=== PATIENT | male | born 1965 | race Two or more races ===

== ENCOUNTER 2020-01-23 11:49 | Inpatient (IN) | payer OTHER ==
[~2020-01-23] VITALS: Ht 182.9 cm; Wt 86.4 kg
[2020-01-23 14:24] LABS: Basophils # (auto) 0 10 ^3/uL (0-0.2); Basophils % (auto) 0.3 % (0.0-2.0); Eosinophils # (auto) 0 10 ^3/uL (0-0.8); Eosinophils % (auto) 0.4 % (0.0-7.0); Hematocrit 43.8 % (41.0-53.0); Hemoglobin 14.7 g/dL (13.5-17.5); Lymphocytes # (auto) 1.7 10 ^3/uL (0.4-5.4); Lymphocytes % (auto) 21.7 % (10.0-50.0); Mean Corpuscular Hemoglobin 30.2 pg (28.0-32.0); Mean Corpuscular Hgb Conc. 33.7 g/dL (32.0-36.0); Mean Corpuscular Volume 89.8 fL (80.0-100.0); Monocytes # (auto) 0.6 10 ^3/uL (0-1.3); Monocytes % (auto) 8.4 % (0.0-12.0); Neutrophils # (auto) 5.3 10 ^3/uL (1.6-8.6); Neutrophils % (auto) 69.2 % (37.0-80.0); Nucleated Red Blood Cells % 0.1 %; Platelet Count (auto) 208 10^3/uL (140-450); Red Blood Cells 4.87 10^6/uL (4.5-5.90); Red Cell Distribution Width 14.2 % (11.8-14.3); White Blood Cell 7.7 10^3/uL (4.4-10.8)
[2020-01-23] MEDS ORDERED: SODIUM CHLORIDE 0.9% 1,000 ML IVB ONE (14:31)
[2020-01-23 14:44] LABS: Albumin 4.1 g/dL (3.4-5.0); Amylase 40 U/L (25-115); Anion Gap 4 (5-15); Blood Urea Nitrogen 10 mg/dL (7-18); Calcium 9.8 mg/dL (8.5-10.1); Carbon Dioxide 29 mmol/L (21-32); Chloride 103 mmol/L (98-107); Glucose 79 mg/dL (74-106); Lipase 146 U/L (73-393); Magnesium 1.8 mg/dL (1.6-2.6); Potassium 3.5 mmol/L (3.5-5.1); Sodium 136 mmol/L (136-145)
[2020-01-23] MEDS ORDERED: cefTRIAXone 1GM/50ML D5W 50 ML IV ONE (14:45)
[2020-01-23] MEDS ORDERED: ONDANSETRON HCL 4 MG/2 ML VIAL IV ONE (14:45)
[2020-01-23] MEDS ORDERED: MORPHINE SULF INJ 2 MG/ML SYRINGE 1ML IV ONE (14:45)
[2020-01-23 14:50] LABS: Alanine Aminotransferase 24 U/L (16-61); Alkaline Phosphatase 62 U/L (45-117); Aspartate Aminotransferase 21 U/L (15-37); BUN/Creatinine Ratio 8.9; Bilirubin, Total 0.8 mg/dL (0.2-1.0); GFR African American 88 mL/min; GFR Non-African American 73 mL/min; Total Protein 7.8 g/dL (6.4-8.2)
[2020-01-23 15:05] LABS: Urine Bacteria NONE SEEN /hpf (None Seen); Urine Blood Negative /uL (Negative); Urine Hyaline Cast MANY /lpf (0 - 2); Urine Mucus FEW (None Seen); Urine WBC 2 /hpf (0 - 3)
[2020-01-23] MEDS: SODIUM CHLORIDE 0.9% 1,000 ML IV SCH (16:40)
[2020-01-23] MEDS ORDERED: HCTZ 25 MG TAB PO ONE (16:45)
[2020-01-23] MEDS ORDERED: DOCUSATE SOD 100 MG CAP PO PRN (16:45)
[2020-01-23] MEDS ORDERED: MORPHINE SULF INJ 2 MG/ML SYRINGE 1ML IV PRN ×2 (16:45)
[2020-01-23] MEDS ORDERED: LORazepam 0.5 MG TAB PO PRN (16:45)
[2020-01-23] MEDS ORDERED: LISINOPRIL 20 MG TAB PO ONE (16:45)
[2020-01-23] MEDS ORDERED: NITROGLYCERIN 0.4 MG SL TAB SL PRN (16:45)
[2020-01-23] MEDS ORDERED: cloNIDine HCL 0.1 MG TAB PO PRN (16:45)
[2020-01-23] MEDS ORDERED: ACETAMINOPHEN 325 MG TAB PO PRN (16:45)
[2020-01-23] MEDS ORDERED: SUCRALFATE 1 GM TAB PO ONE (17:00)
[2020-01-23 17:12] LABS: Cholesterol 156 mg/dL (< 200)
[2020-01-23 17:14] LABS: HDL Cholesterol 66 mg/dL (40-59); LDL Cholesterol 82 mg/dL (< 100); Triglycerides 64 mg/dL (< 150)
[2020-01-23] MEDS: ALUM & MAG HYDROX-SIMETH LIQ(MAALOX) 30 ML PO PRN (17:44)
[2020-01-23] MEDS: HYDROcodone-ACET 5/325MG TAB PO PRN (17:45)
[2020-01-23] MEDS ORDERED: HYDROmorphone HCL 2 MG/ML VL IV ONE (18:00)
[2020-01-23 20:15] VITALS: BP 149/79
--- NOTE | 2020-01-23 20:15 | NUR ---
Patient admitted to room 215A Patient brought to room via wheelchair. Telemetry #34 running SR in the 60s. Patient is A&Ox4, respirations even and non-labored with no s/s of distress at this time. Discussed POC and NPO status with patient who verbalized understanding. IV to right FA flushed patent and intact. Oriented patient to room, call light, bed controls and advised patient to call for assistance. Bed in lowest locked position with 2 side rails up, call light within reach. Will continue to monitor.
[2020-01-23 22:00] VITALS: BP 149/79
--- NOTE | 2020-01-23 22:10 | NUR ---
Hospitalist paged Patient c/o pain that is growing in intensity. Stated that he was given Morphine in the ED and that it had no effect. Dilaudid was given in the ED as well and worked very well for the pain.
--- NOTE | 2020-01-23 22:15 | NUR ---
Hospitalist returned call Order: Dilaudid 1 mg Q4hrs PRN. Orders placed
[2020-01-23 23:12] VITALS: BP 149/79
[2020-01-23] MEDS: SUCRALFATE 1 GM TAB PO SCH (23:14)
[2020-01-23] MEDS: HYDROmorphone HCL 2 MG/ML VL IV PRN (23:15)
[2020-01-23] MEDS: FAMOTIDINE (10MG/ML) 2ML VL IV SCH (23:15)
[2020-01-23] MEDS: metroNIDAZOLE 500MG/100ML 100 ML IV SCH (23:15)
--- NOTE | 2020-01-23 23:15 | NUR ---
Pain Patient c/o increasing abdominal pain. Administered 1 mg Dilaudid per EMAR. Will continue to monitor.
[2020-01-23] MEDS ORDERED: MULT-228 PO (23:17)
[2020-01-23] MEDS ORDERED: LISI-646 PO (23:17)
[2020-01-23] MEDS ORDERED: BOSW1TAB3 PO (23:17)
--- NOTE | 2020-01-23 23:45 | NUR ---
Pain reassessed Patient resting with eyes closed, respirations even and non-labored with no s/s of distress at this time.
[2020-01-24 05:26] VITALS: BP 117/72
[2020-01-24] MEDS: SUCRALFATE 1 GM TAB PO SCH ×4 (06:03→21:50)
[2020-01-24] MEDS: metroNIDAZOLE 500MG/100ML 100 ML IV SCH ×3 (06:03→21:50)
[2020-01-24] MEDS: HYDROmorphone HCL 2 MG/ML VL IV PRN ×4 (06:04→21:51)
--- NOTE | 2020-01-24 06:35 | NUR ---
Pain Patient c/o 7/10 body pain. Administered 1 mg Dilaudid per EMAR. Will continue to monitor.
--- NOTE | 2020-01-24 07:47 | NUR ---
OPENING SHIFT NOTE: PATIENT RESTING IN BED, PATIENT A/OX4 COOPERATIVE, RESPIRATIONS EVEN AND UNLABORED. PATIENT GIVEN SUPPLIES FOR INDEPENDENT CARE. CALL LIGHT WITHIN REACH FALL PRECAUTIONS IN PLACE, WILL CONTINUE TO MONITOR.
[2020-01-24 09:00] VITALS: BP 113/64
[2020-01-24] MEDS: LISINOPRIL 20 MG TAB PO SCH (09:14)
[2020-01-24] MEDS: cefTRIAXone 1GM/50ML D5W 50 ML IV SCH (09:15)
[2020-01-24] MEDS: FAMOTIDINE (10MG/ML) 2ML VL IV SCH (09:15)
[2020-01-24] MEDS: SODIUM CHLORIDE 0.9% 1,000 ML IV SCH (09:15)
[2020-01-24] MEDS: HCTZ 25 MG TAB PO SCH (09:15)
--- NOTE | 2020-01-24 09:30 | NUR ---
MD JOHN MARCELO
[2020-01-24] MEDS ORDERED: ENOXAPARIN SOD 40 MG/0.4 ML SYRINGE SC SCH (10:00)
[2020-01-24] MEDS ORDERED: PANTOPRAZOLE 40 MG/10 ML VIAL INJ IV ONE (10:30)
--- NOTE | 2020-01-24 12:54 | NUR ---
IN HOUSE COVID: COVID SAMPLE WALKED TO LAB.
[2020-01-24 13:00] VITALS: BP 108/71
[2020-01-24 17:17] VITALS: BP 116/65
--- NOTE | 2020-01-24 18:51 | NUR ---
CARE ENDORSED TO CODI SHARIF.
--- NOTE | 2020-01-24 19:35 | NUR ---
Opening shift note Assumed care of patient who is A&Ox4, respirations even and non-labored with no s/s of distress at this time. Discussed POC, surgery, and NPO status with patient who verbalized understanding. Bed in lowest locked position with 2 side rails up. Call light within reach, advised patient to call for assistance. Will continue to monitor.
[2020-01-24] MEDS: PANTOPRAZOLE 40 MG/10 ML VIAL INJ IV SCH (21:51)
--- NOTE | 2020-01-24 21:55 | NUR ---
Pain Patient experiencing abdominal pain 12/03. Administered 1 mg Dilaudid per EMAR. Will continue to monitor.
[2020-01-24 22:00] VITALS: BP 141/73
--- NOTE | 2020-01-24 22:50 | NUR ---
Pain reassessed Patient 10 pain, tolerating well at this time.
[2020-01-25] MEDS: SODIUM CHLORIDE 0.9% 1,000 ML IV SCH ×2 (02:00→20:08)
[2020-01-25 05:00] VITALS: BP 124/82
[2020-01-25] MEDS: metroNIDAZOLE 500MG/100ML 100 ML IV SCH ×3 (05:11→22:09)
[2020-01-25] MEDS: SUCRALFATE 1 GM TAB PO SCH ×4 (05:12→22:08)
--- NOTE | 2020-01-25 05:30 | NUR ---
Patient prepared for surgery Gown, bed linens changed, CHG wipes applied, and EKG obtained. Patient tolerated well.
[2020-01-25 08:54] LABS: INR 1.08 (0.9-1.15); Partial Thromboplastin Time 29.5 sec (23.0-31.2)
[2020-01-25] MEDS: cefTRIAXone 1GM/50ML D5W 50 ML IV SCH (09:17)
--- NOTE | 2020-01-25 09:30 | NUR ---
Brought patient down to pre op per bed for surgery in a stable condition. Report give to Blessing SHARIF at bedside.
[2020-01-25] MEDS ORDERED: ROCURONIUM 10MG/ML 10ML VIAL IV ONE (09:38)
[2020-01-25] MEDS ORDERED: MEPERIDINE HCL (50 MG/ML) 1 ML VIAL ONE (09:38)
[2020-01-25] MEDS ORDERED: GLYCOPYRROLATE 0.2 MG/ML 1ML VIAL ONE (09:38)
[2020-01-25] MEDS ORDERED: ONDANSETRON HCL 4 MG/2 ML VIAL ONE (09:38)
[2020-01-25] MEDS ORDERED: MIDAZOLAM HCL 1MG/1ML-2 ML VIAL ONE (09:38)
[2020-01-25] MEDS ORDERED: fentaNYL CITRATE 100 MCG/2 ML VL ONE ×2 (09:38→10:54)
[2020-01-25] MEDS ORDERED: SODIUM CHLORIDE LOCK 20 ML ONE (09:38)
[2020-01-25] MEDS ORDERED: KETOROLAC TROMETH 60MG/2ML VIAL ONE ×2 (09:38→10:57)
[2020-01-25] MEDS ORDERED: PROPOFOL 10 MG/ML 20 ML IV ONE (09:38)
[2020-01-25 09:56] VITALS: BP 135/81
[2020-01-25] MEDS: HCTZ 25 MG TAB PO SCH (10:00)
[2020-01-25] MEDS: LISINOPRIL 20 MG TAB PO SCH (10:00)
[2020-01-25] MEDS ORDERED: ceFAZolin 1GM/50ML 50 ML IV ONE (10:02)
[2020-01-25] MEDS ORDERED: HYDROmorphone HCL 2 MG/ML VL ONE (10:19)
[2020-01-25] MEDS ORDERED: NEOSTIGMINE 1 MG/ML INJ (10mg/10ML VIAL) ONE (10:55)
[2020-01-25] MEDS ORDERED: MORPHINE SULFATE 4 MG/ML SYR/VIAL IV PRN (11:30)
[2020-01-25] MEDS ORDERED: HYDROmorphone HCL 2 MG/ML VL IV PRN (11:30)
[2020-01-25] MEDS ORDERED: METOCLOPRAMIDE HCL 5MG/ml INJ 2ml VIAL IV PRN (11:30)
[2020-01-25 11:46] LABS: Basophils # (auto) 0 10 ^3/uL (0-0.2); Basophils % (auto) 0.7 % (0.0-2.0); Eosinophils # (auto) 0.2 10 ^3/uL (0-0.8); Eosinophils % (auto) 2.7 % (0.0-7.0); Hematocrit 41.4 % (41.0-53.0); Lymphocytes # (auto) 1.4 10 ^3/uL (0.4-5.4); Lymphocytes % (auto) 25.6 % (10.0-50.0); Mean Corpuscular Hemoglobin 30.8 pg (28.0-32.0); Mean Corpuscular Hgb Conc. 33.9 g/dL (32.0-36.0); Mean Corpuscular Volume 90.8 fL (80.0-100.0); Monocytes # (auto) 0.5 10 ^3/uL (0-1.3); Monocytes % (auto) 9.3 % (0.0-12.0); Neutrophils # (auto) 3.5 10 ^3/uL (1.6-8.6); Neutrophils % (auto) 61.7 % (37.0-80.0); Nucleated Red Blood Cells % 0.1 %; Platelet Count (auto) 196 10^3/uL (140-450); Red Blood Cells 4.56 10^6/uL (4.5-5.90); Red Cell Distribution Width 14.7 % (11.8-14.3); White Blood Cell 5.6 10^3/uL (4.4-10.8)
--- NOTE | 2020-01-25 12:30 | NUR ---
Patient returned to rm 215A per bed from PACU s/p jaquelin spanne with abdominal binder on, 3 sites with dressings and one with MILTON drain with sanguinous drainage. Addendum: 01/25/20 at 1309 by Flaco Wall RN Patient awake but a little confused at this time. Patient stated that he could not remember anything that happened after he was brought down to pre op. Patient c/o abdominal pain at this time and will be medicated as per prn order. Instructed patient not to get out of bed at this time as he still felt weak. Will continue to monitor patient.
[2020-01-25] MEDS: HYDROmorphone HCL 2 MG/ML VL IV PRN ×2 (12:42→22:09)
[2020-01-25] MEDS: PANTOPRAZOLE 40 MG/10 ML VIAL INJ IV SCH ×2 (12:47→22:08)
[2020-01-25 13:00] VITALS: BP 140/80
[2020-01-25] MEDS ORDERED: metroNIDAZOLE 500MG/100ML 100 ML IV SCH (14:00)
[2020-01-25] MEDS: ceFAZolin 1GM/50ML 50 ML IV SCH ×2 (14:06→22:08)
--- NOTE | 2020-01-25 14:30 | NUR ---
IV insertion IV access obtained, via clean sterile technique by inserting 22 gauge catheter at right hand after 1 attempt. IV secured properly. No trauma to site. Patient tolerated procedure well. IV removal IV DC'd in patient's right forearm with clean sterile technique, catheter fully intact. Pressure dressing applied to site. Patient tolerated well.
[2020-01-25 16:27] VITALS: BP 128/87
[2020-01-25] MEDS: ONDANSETRON HCL 4 MG/2 ML VIAL IV PRN (16:27)
--- NOTE | 2020-01-25 16:30 | NUR ---
Paged Dr. Norbert Lopez to clarify patient's BP medication on hold. Talked to Dr. Lopez by phone and MD gave new orders.
[2020-01-25] MEDS ORDERED: cloNIDine HCL 0.1 MG TAB PO PRN (16:45)
--- NOTE | 2020-01-25 19:25 | NUR ---
Opening shift note Assumed care of patient who is A&Ox4, respirations even and non-labored with no s/s of distress at this time. Discussed POC, current pain levels, and discussed the need to ambulate with patient who verbalized understanding. MILTON draining 15 ml sanguineous fluid. Dressings CDI at this time. Advised patient to call for assistance. Bed in lowest locked position with 2 side rails up, call light within reach. Will continue to monitor.
--- NOTE | 2020-01-25 22:00 | NUR ---
Educated patient on I.S., splinting, and deep breathing Patient demonstrated using I.S., deep breathing and tolerated well.
--- NOTE | 2020-01-25 22:15 | NUR ---
Pain Patient c/o 10 abdominal pain. Administered 1 mg Dilaudid per EMAR. Will continue to monitor.
[2020-01-25 22:33] VITALS: BP 132/78
--- NOTE | 2020-01-26 01:30 | NUR ---
Patient Ambulating Hallway Patient walking upright and balanced without s/s of weakness or pain for approximately ten minutes. Patient tolerated well.
[2020-01-26 05:27] VITALS: BP 152/89
[2020-01-26] MEDS: metroNIDAZOLE 500MG/100ML 100 ML IV SCH ×3 (05:36→23:10)
[2020-01-26] MEDS: SUCRALFATE 1 GM TAB PO SCH ×4 (05:36→21:59)
[2020-01-26] MEDS: ceFAZolin 1GM/50ML 50 ML IV SCH ×3 (05:36→21:59)
[2020-01-26] MEDS: HYDROmorphone HCL 2 MG/ML VL IV PRN ×3 (05:51→23:10)
--- NOTE | 2020-01-26 08:00 | NUR ---
RECEIVED PATIENT ALERT AND ORIENTED X4, NOT IN DISTRESS, CLEAR SOUNDS IN BILATERAL UPPER AND LOWER LUNG SOUNDS, RR=18 SAT=96%, DEEP BREATHING AND COUGHING WAS ENCOURAGED, INCENTIVE SPIROMETER AT BED SIDE, EDUCATION PROVIDED, DEMONSTRATED AND VERBALIZED UNDERSTANDING, DENIED SHORT OF BREATH AND CHEST PAIN AT THIS MOMENT, SR R=82 ON TELE MONITOR, ABDOMEN SOFT WITH ACTIVE BS, NO PASSING GAS, LAST BM=01/23/20 REPORTED, ABDOMINAL SURGICAL INCISION WOUNDS INTACT, COVERED WITH DRY AND INTACT DRESSING, RT. MID ABDOMINAL MILTON IN PLACE AND INTACT, DRAINING SANGUINOUS DRAIN NOTED, TOLERATING ABDOMINAL BINDER WELL, GENERAL SKIN DRY AND INTACT, RADIAL AND PEDAL PULSES PALPABLE, RESTING ON BED, PAIN L=4/10 REPORTED, HEAD OF BED ELEVATED, BED ON LOW POSITION, RAILS UP X2, CALL LIGHT ON REACH, WILL CONTINUE MONITORING.
[2020-01-26 09:00] VITALS: BP 116/78
[2020-01-26] MEDS: PANTOPRAZOLE 40 MG/10 ML VIAL INJ IV SCH ×2 (10:21→21:59)
[2020-01-26] MEDS: LISINOPRIL 20 MG TAB PO SCH (10:22)
[2020-01-26] MEDS: HYDROcodone-ACET 5/325MG TAB PO PRN (10:23)
--- NOTE | 2020-01-26 11:12 | NUR ---
OUT OF BED WITH PT AND AMBULATED AROUND THE UNIT X2 REPORTED, TOLERATED WELL, RESTING ON BED AT THIS MOMENT, WILL CONTINUE MONITORING.
[2020-01-26] MEDS: SODIUM CHLORIDE 0.9% 1,000 ML IV SCH ×2 (11:20→16:13)
--- NOTE | 2020-01-26 12:42 | NUR ---
Nutrition Assessment Notes please see attached link for complete assessment Est energy needs BW 84 [id number] kcal (25-30 kcal/kg BWkg), Est protein needs: 84-100g (1-1.2g/kg BWkg). Will reassess prn. Addendum: 01/26/20 at [address] Amended: Links added.
[2020-01-26 13:00] VITALS: BP 122/68
[2020-01-26] MEDS: ONDANSETRON HCL 4 MG/2 ML VIAL IV PRN (16:14)
[2020-01-26 17:09] VITALS: BP 138/76
--- NOTE | 2020-01-26 19:20 | NUR ---
Opening note Assumed care of patient, alert and oriented x4. No S/S of SOB or distress. Pt stating pain in abdomen 8/, will administer prescribed PRN pain medication. Abdominal binder in place, 3 post op incisions noted, clean dry and intact with betadine dressings. MILTON drain noted to be patent and draining with minimal sanguinous drainage. Safety measures in place, bed in lowest locked position, bed rails raised x2, call light within reach. Instructed on POC and instructed to call for assistance. Will continue to monitor PRN and q1h.
--- NOTE | 2020-01-26 20:01 | NUR ---
REPORT WAS GIVEN TO THE PHOTOENGRAVER APPRENTICE RN.
[2020-01-26 22:00] VITALS: BP 117/79
--- NOTE | 2020-01-27 03:00 | NUR ---
MILTON drained, 40 mL output of sanguinous fluid. Drain returned to functioning state, pt tolerated well. Will continue to monitor.
[2020-01-27] MEDS: HYDROmorphone HCL 2 MG/ML VL IV PRN ×2 (03:05→05:43)
[2020-01-27 05:00] VITALS: BP 137/89
[2020-01-27] MEDS: ceFAZolin 1GM/50ML 50 ML IV SCH (05:42)
[2020-01-27] MEDS: metroNIDAZOLE 500MG/100ML 100 ML IV SCH (06:37)
[2020-01-27] MEDS: SUCRALFATE 1 GM TAB PO SCH ×2 (07:35→11:30)
--- NOTE | 2020-01-27 07:39 | NUR ---
RECEIVED PATIENT ALERT AND ORIENTED X4, NOT IN DISTRESS, CLEAR SOUNDS IN BILATERAL UPPER AND LOWER LUNG SOUNDS, RR=18 SAT=97%, DEEP BREATHING AND COUGHING WAS ENCOURAGED, INCENTIVE SPIROMETER AT BED SIDE, EDUCATION PROVIDED, DEMONSTRATED AND VERBALIZED UNDERSTANDING, DENIED SHORT OF BREATH AND CHEST PAIN AT THIS MOMENT, SR R=72 ON TELE MONITOR, ABDOMEN SOFT WITH ACTIVE BS, LAST BM=01/26/20 REPORTED, ABDOMINAL SURGICAL INCISIONS WOUNDS DRY AND INTACT, COVERED WITH DRY AND INTACT DRESSING, RT. MID ABDOMINAL MILTON IN PLACE AND PATENT, DRAINING SANGUINOUS DRAIN, TOLERATING ABDOMINAL BINDER WELL, GENERAL SKIN DRY AND INTACT, RADIAL AND PEDAL PULSES PALPABLE, RESTING ON BED, PAIN L=4/10 REPORTED, HEAD OF BED ELEVATED, BED ON LOW POSITION, RAILS UP X2, CALL LIGHT ON REACH, WILL CONTINUE MONITORING.
--- NOTE | 2020-01-27 08:47 | NUR ---
PT IS AMBULATING INDEPENDENTLY WITHOUT DEVICE. CANCEL P.T. REFERRAL.
[2020-01-27 09:00] VITALS: BP 132/80
[2020-01-27] MEDS: PANTOPRAZOLE 40 MG/10 ML VIAL INJ IV SCH (09:44)
[2020-01-27] MEDS: LISINOPRIL 20 MG TAB PO SCH (09:45)
[2020-01-27] MEDS: ONDANSETRON HCL 4 MG/2 ML VIAL IV PRN (09:45)
[2020-01-27] MEDS: ALUM & MAG HYDROX-SIMETH LIQ(MAALOX) 30 ML PO PRN (09:46)
[2020-01-27] MEDS: HYDROcodone-ACET 5/325MG TAB PO PRN (09:46)
[2020-01-27] MEDS: SODIUM CHLORIDE 0.9% 1,000 ML IV SCH (09:50)
[2020-01-27 10:40] VITALS: BP 132/80
--- NOTE | 2020-01-27 11:42 | NUR ---
NOT IN DISTRESS, PENDING D/C, 45CC SANGUINIS COLORED MLITON DRAIN OUTPUT NOTED, D/C WITH MILTON EDUCATION PROVIDED, DEMONSTRATED UNDERSTANDING, WILL CONTINUE MONITORING.
[2020-01-27 13:00] VITALS: BP 136/78
--- NOTE | 2020-01-27 13:00 | NUR ---
D/C INSTRUCTIONS AND EDUCATION PROVIDED, VERBALIZED UNDERSTANDING, MEDICATION PRESCRIPTION AND EDUCATION PROVIDED, VERBALIZED UNDERSTANDING, PCP FOLLOW UP ARRANGEMENT WAS DONE, FOLLOW UP WITH ON 02/04/20 AT 4:00PM ON [phone] AT [address] [place] [address] FO[address] UP WITH [address] DALE IN 10 DAYS ON 02/09/20 AT 10:45, D/C IV SITE AND TELE MONITOR, TOLERATED WELL, NOT IN DISTRESS, DENIED PAIN, VS T=98.1 RR=18 SAT=96% P=74 XI=364/68, WC PROVIDED, D/C HOME WALKING, TOOK ALL BELONGINGS AND LEFT NOTHING BEHIND.
== END 2020-01-27 13:00 | disposition home or self-care (01) | DRG 419 ==
LOC: ER 11:49 → TELE 11:50 → TELE-CENTR 20:13
PROVIDERS: ADMIT Hospitalist; ATTEND Family Medicine
PROC: 0FT44ZZ Resection of Gallbladder, Percutaneous Endoscopic Approach (ICD-10-PCS; principal; 2020-01-25 10:05)
DX: K80.12 Calculus of gallbladder with acute and chronic cholecystitis without obstruction (principal); E86.0 Dehydration; I10 Essential (primary) hypertension; E66.01 Morbid (severe) obesity due to excess calories; K29.80 Duodenitis without bleeding; K57.90 Diverticulosis of intestine, part unspecified, without perforation or abscess without bleeding; Z82.49 Family history of ischemic heart disease and other diseases of the circulatory system; Z68.25 Body mass index [BMI] 25.0-25.9, adult; Z20.828 Contact with and (suspected) exposure to other viral communicable diseases
CPT/HCPCS: 36415; 71045; 74176; 80053; 80061; 81001; 82150; 82247; 83036; 83690; 83735; 84484; 85025; 85610; 85730; 86850; 86900; 86901; 87040; 87086; 93005; C9113; G0378; J0690; J0696; J1885; J2250; J2405; J2704; J3490